=== PATIENT | male | born 1995 | race Caucasian/White ===

== ENCOUNTER 2017-12-18 05:19 | Emergency (ER) | payer SELFPAY ==
[~2017-12-18] VITALS: Ht 188 cm; Wt 85.0 kg
[2017-12-18 05:20] VITALS: BP 135/88; PULSE 147; RESP 16; TEMP 98.5; O2SAT 98
[2017-12-18] MEDS ORDERED: FAMOTIDINE 20 MG/2 ML VIAL IV PUSH SCH (05:45)
[2017-12-18] MEDS ORDERED: SODIUM CHLOR 0.9% 1000 ML INJ 1,000 ML IV ONE (05:45)
[2017-12-18] MEDS ORDERED: ONDANSETRON HCL 4 MG/2 ML VIAL IV PUSH ONE (05:45)
--- NOTE | 2017-12-18 06:02 | PD ---
HPI Chief Complaint: GI Complaint Time Seen by Provider: 05:30 Travel History International Travel<30 days: No Contact w/Intl Traveler<30days: No Traveled to known affect area: No History of Present Illness HPI Patient developed vomiting repeatedly since 11:00 last night which is 7 hours prior to presentation to the ER. He has not been able to keep anything down. Denies abdominal pain denies diarrhea as recurrent vomiting he had nothing at home to stop it nothing worked. 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 But he also did have a sick contact with he had a date any case the woman is that she had been sick about a week before that but was not actively sick when he kissed her 3 days ago in the ER patient is not vomiting he is nontoxic-appearing he has no abdominal pain his only complaint is recurrent vomiting not controlled with anything try to home PFSH Past Medical History Immunizations Current: Yes Tetanus Vaccination: Unknown Influenza Vaccination: No Social History Alcohol Use: No Tobacco Use: No Substance Use: No Allergies-Medications (Allergen,Severity, Reaction): Coded Allergies: No Known Allergies (Unverified , 12/18/17) Reported Meds & Prescriptions Reported Meds & Active Scripts Active Zofran (Ondansetron HCl) 4 Mg Tab 4 Mg PO Q6HR PRN Review of Systems Except as stated in HPI: all other systems reviewed are Neg Gastrointestinal: Positive: Nausea, Vomiting, No: Diarrhea, Abdominal Pain Physical Exam Narrative GENERAL: Nontoxic-appearing awake alert SKIN: Warm and dry. HEAD: Atraumatic. Normocephalic. EYES: Pupils equal and round. No scleral icterus. No injection or drainage. ENT: No nasal bleeding or discharge. Mucous membranes pink and moist. NECK: Trachea midline. No JVD. CARDIOVASCULAR: Regular rate and rhythm. RESPIRATORY: No accessory muscle use. Clear to auscultation. Breath sounds equal bilaterally. GASTROINTESTINAL: Abdomen soft, non-tender, nondistended. Hepatic and splenic margins not palpable. No pain with Percussion palpation in all morgan, no pain in the epigastrium MUSCULOSKELETAL: Extremities without clubbing, cyanosis, or edema. No obvious deformities. NEUROLOGICAL: Awake and alert. No obvious cranial nerve deficits. Motor grossly within normal limits. Five out of 5 muscle strength in the arms and legs. Normal speech. PSYCHIATRIC: Appropriate mood and affect; insight and judgment normal. Data Data Last Documented VS Vital Signs Date Time Temp Pulse Resp B/P (MAP) Pulse Ox O2 Delivery O2 Flow Rate FiO2 12/18/17 07:22 12/18/17 07:21 95 14 98 Room Air 12/18/17 05:20 98.5 Orders Orders Ondansetron Inj (Zofran Inj) (12/18/17 05:45) Sodium Chlor 0.9% 1000 Ml Inj (Ns 1000 M (12/18/17 05:45) Famotidine Inj (Pepcid Inj) (12/18/17 05:45) Complete Blood Count With Diff (12/18/17 05:45) Comprehensive Metabolic Panel (12/18/17 05:45) Lipase (12/18/17 05:45) Ed Discharge Order (12/18/17 07:07) Labs Laboratory Tests Test 12/18/17 05:50 White Blood Count 20.8 TH/MM3 Red Blood Count 5.81 MIL/MM3 Hemoglobin 16.2 GM/DL Hematocrit 47.8 % Mean Corpuscular Volume 82.2 FL Mean Corpuscular Hemoglobin 27.9 PG Mean Corpuscular Hemoglobin Concent 33.9 % Red Cell Distribution Width 13.2 % Platelet Count 294 TH/MM3 Mean Platelet Volume 8.3 FL Neutrophils (%) (Auto) 88.1 % Lymphocytes (%) (Auto) 5.9 % Monocytes (%) (Auto) 5.0 % Eosinophils (%) (Auto) 0.9 % Basophils (%) (Auto) 0.1 % Neutrophils # (Auto) 18.3 TH/MM3 Lymphocytes # (Auto) 1.2 TH/MM3 Monocytes # (Auto) 1.0 TH/MM3 Eosinophils # (Auto) 0.2 TH/MM3 Basophils # (Auto) 0.0 TH/MM3 CBC Comment DIFF FINAL Differential Comment Blood Urea Nitrogen 20 MG/DL Creatinine 0.82 MG/DL Random Glucose 127 MG/DL Total Protein 8.5 GM/DL Albumin 4.2 GM/DL Calcium Level 8.7 MG/DL Alkaline Phosphatase 73 U/L Aspartate Amino Transf (AST/SGOT) 23 U/L Alanine Aminotransferase (ALT/SGPT) 41 U/L Total Bilirubin 0.5 MG/DL Sodium Level 138 MEQ/L Potassium Level 4.3 MEQ/L Chloride Level 106 MEQ/L Carbon Dioxide Level 21.2 MEQ/L Anion Gap 11 MEQ/L Estimat Glomerular Filtration Rate 115 ML/MIN Lipase 119 U/L MDM Medical Decision Making Medical Screen Exam Complete: Yes Emergency Medical Condition: Yes Differential Diagnosis Patient is vomiting IV fluid and Zofran have here him he feels better he tolerated by mouth I'm discharging him home with Zofran by mouth and he is good to go Narrative Course IV fluids Zofran IV 2 L and now by mouth challenge tolerated discharge with Zofran by mouth follow-up as an outpatient return if symptoms worsen Diagnosis Primary Impression: Gastroenteritis Patient Instructions: Acute Nausea and Vomiting (ED), General Instructions Scripts Ondansetron (Zofran) 4 Mg Tab 4 MG PO Q6HR Y for NAUSEA OR VOMITING, #15 TAB 0 Refills Prov: Montrell Muñoz MD 12/18/17 Disposition: 01 DISCHARGE HOME Condition: Critical Montrell Muñoz MD Dec 18, 2017 06:02
[2017-12-18 06:14] LABS: AUTOMATED NEUTROPHIL # 18.3 TH/MM3 (1.8-7.7); BASOPHIL % 0.1 % (0.0-2.0); EOSINOPHIL # 0.2 TH/MM3 (0-0.4); EOSINOPHIL % 0.9 % (0.0-4.0); HEMATOCRIT 47.8 % (39.0-51.0); HEMOGLOBIN 16.2 GM/DL (13.0-17.0); LYMPH % 5.9 % (9.0-44.0); LYMPHOCYTE # 1.2 TH/MM3 (1.0-4.8); MEAN CELL VOLUME 82.2 FL (80.0-100.0); MEAN CORPUSCULAR HEMOGLOBIN 27.9 PG (27.0-34.0); MEAN CORPUSCULAR HGB CONC 33.9 % (32.0-36.0); MEAN PLATELET VOLUME 8.3 FL (7.0-11.0); NEUT % 88.1 % (16.0-70.0); PLATELET COUNT 294 TH/MM3 (150-450); RED BLOOD COUNT 5.81 MIL/MM3 (4.50-5.90); RED CELL DISTRIBUTION WIDTH 13.2 % (11.6-17.2); WHITE BLOOD COUNT 20.8 TH/MM3 (4.0-11.0)
[2017-12-18 06:27] LABS: ALBUMIN 4.2 GM/DL (3.4-5.0); ALT (GPT) 41 U/L (12-78); AST (GOT) 23 U/L (15-37); BICARBONATE 21.2 MEQ/L (21.0-32.0); BLOOD UREA NITROGEN 20 MG/DL (7-18); CALCIUM 8.7 MG/DL (8.5-10.1); CHLORIDE 106 MEQ/L (98-107); CREATININE 0.82 MG/DL (0.60-1.30); GLOMERULAR FILTRATION RATE 115 ML/MIN (>89); GLUCOSE,RANDOM 127 MG/DL (74-106); LIPASE 119 U/L (73-393); SODIUM (NA) 138 MEQ/L (136-145)
[2017-12-18 06:29] LABS: ALKALINE PHOSPHATASE 73 U/L (45-117); TOTAL BILIRUBIN ADULT 0.5 MG/DL (0.2-1.0); TOTAL PROTEIN 8.5 GM/DL (6.4-8.2)
[2017-12-18] MEDS ORDERED: ZOFR4TAB PO (07:05)
[2017-12-18 07:21] VITALS: BP 130/80; PULSE 95; RESP 14; O2SAT 98
== END 2017-12-18 07:23 | disposition home or self-care (01) ==
LOC: NEPC 05:19
DX: K52.9 Noninfective gastroenteritis and colitis, unspecified (principal)
CPT/HCPCS: 80053; 83690; 85025; 96361; 96374; 96375; 99284; J2405; J7030